=== PATIENT | female | born 1985 | race Two or more races ===

== ENCOUNTER 2024-02-11 09:17 | Emergency (ER) | payer OTHER ==
[~2024-02-11] VITALS: Ht 152.4 cm; Wt 72.7 kg
[2024-02-11 09:41] VITALS: BP 115/66; PULSE 74; O2SAT 99
[2024-02-11] MEDS: HYDROcodone/acetaminophen 5mg/325mg tablet PO ONE (11:46)
[2024-02-11 12:53] VITALS: RESP 16; TEMP 98.5
== END 2024-02-11 12:54 | disposition home or self-care (01) ==
LOC: ER 09:18
DX: S92.352A Displaced fracture of fifth metatarsal bone, left foot, initial encounter for closed fracture (principal); Z91.018 Allergy to other foods; X58.XXXA Exposure to other specified factors, initial encounter; Y93.89 Activity, other specified; Y92.89 Other specified places as the place of occurrence of the external cause; Y99.8 Other external cause status
CPT/HCPCS: 29515; 73630; 99283